=== PATIENT | male | born 1995 | race Asian ===

== ENCOUNTER 2021-09-22 04:30 | Emergency (ER) | payer OTHER ==
[~2021-09-22] VITALS: Ht 172.7 cm; Wt 86.2 kg
--- NOTE | 2021-09-22 04:33 | NUR ---
PT BIBA BLS TO BED 12.
[2021-09-22] MEDS ORDERED: ONDANSETRON 4 MG ODT PO ONE (04:45)
[2021-09-22] MEDS ORDERED: MECLIZINE 25 MG TAB PO ONE (04:45)
[2021-09-22 04:46] VITALS: BP 143/103
[2021-09-22] MEDS ORDERED: NACL 0.9% 1,000 ML IV ONE (06:30)
[2021-09-22 07:33] LABS: BASOPHILS # (AUTO) 0.1 K/uL (0.00-0.22); BASOPHILS % (AUTO) 0.5 % (0.0-2.0); EOSINOPHILS # (AUTO) 0.2 K/uL (0-0.4); EOSINOPHILS % (AUTO) 2.1 % (0.0-4.0); HEMATOCRIT 46.3 % (36-52); HEMOGLOBIN 15.4 g/dL (12.0-18.0); LYMPHOCYTES # (AUTO) 3.7 K/uL (2.0-11.5); LYMPHOCYTES % (AUTO) 36.7 % (20.5-51.1); MEAN CORPUSCULAR HEMOGLOBIN 29 pg (27-31); MEAN CORPUSCULAR HGB CONC 33 g/dL (33-37); MEAN CORPUSCULAR VOLUME 86.8 fL (80-94); MONOCYTES # (AUTO) 0.6 K/uL (0.8-1.0); MONOCYTES % (AUTO) 5.9 % (1.7-9.3); NEUTROPHILS # (AUTO) 5.6 K/uL (1.8-7.7); NEUTROPHILS % (AUTO) 54.8 % (42.2-75.2); PLATELET COUNT (AUTO) 274 K/uL (140-450); RED BLOOD CELL COUNT(AUTO) 5.33 MIL/uL (4.20-6.10); RED CELL DISTRIBUTION WIDTH 13.9 % (11.6-13.7); WHITE BLOOD COUNT (AUTO) 10.2 K/uL (4.8-10.8)
[2021-09-22 07:47] LABS: APPEARANCE,URINE CLEAR (CLEAR); BILIRUBIN,URINE NEGATIVE (NEGATIVE); BLOOD, URINE 1+ (NEGATIVE); COLOR,URINE YELLOW (YELLOW); LEUKOCYTE ESTERASE ,URINE NEGATIVE (NEGATIVE); NITRITE, URINE NEGATIVE (NEGATIVE); UGLUCOSE NEGATIVE (NEGATIVE)
[2021-09-22 07:51] LABS: ALBUMIN 3.9 g/dL (3.4-5.0); ANION GAP 12.2 (8-16); CARBON DIOXIDE 25.6 mmol/L (21-32); CREATININE 0.8 mg/dL (0.6-1.3); MAGNESIUM 2.1 mg/dL (1.8-2.4); PHOSPHORUS 3.6 mg/dL (2.5-4.9); POTASSIUM 3.8 mmol/L (3.5-5.1); TOTAL BILIRUBIN 0.2 mg/dL (0.0-1.0)
[2021-09-22 08:13] LABS: BARBITURATE, URINE NEGATIVE ng/ml (NEG <=200); BENZODIAZEPINE, URINE NEGATIVE ng/mL (NEG <=200); CANNABINOID, URINE NEGATIVE ng/mL (NEG <=50); COCAINE, URINE NEGATIVE ng/mL (NEG <=300); OPIATE, URINE NEGATIVE ng/mL (NEG <=2000); PHENCYCLIDINE SCREEN,URINE NEGATIVE ng/mL (NEG <=25)
[2021-09-22 08:24] LABS: WBC,URINE 0-5 /HPF (0-5)
[2021-09-22] MEDS ORDERED: MECL-303 PO (08:39)
[2021-09-22 08:47] VITALS: BP 143/103
--- NOTE | 2021-09-22 08:48 | NUR ---
Patient discharged with v/s stable. Written and verbal after care instructions ABOUT VERTIGO given and explained. Patient alert, oriented and verbalized understanding of instructions. Ambulatory with steady gait. All questions addressed prior to discharge. ID band removed. Patient advised to follow up with PMD. Rx of MECLIZINE given. Patient educated on indication of medication including possible reaction and side effects. Opportunity to ask questions provided and answered.
== END 2021-09-22 08:48 | disposition home or self-care (01) ==
LOC: MED 04:30
DX: H81.399 Other peripheral vertigo, unspecified ear (principal); F17.210 Nicotine dependence, cigarettes, uncomplicated
CPT/HCPCS: 36415; 80053; 80305; 81001; 83735; 84100; 85025; 93005; 96360; 96361; 99284; J8597; Q0162; J7030

== ENCOUNTER 2022-05-17 22:02 | Emergency (ER) | payer OTHER ==
[~2022-05-17] VITALS: Ht 172.7 cm; Wt 90.7 kg
[~2022-05-17 22:02] MED LIST: MECL-303 PO
[2022-05-17 22:42] VITALS: BP 119/75
--- NOTE | 2022-05-17 22:48 | NUR ---
TO LOBBY FOLLOWING TRIAGE
[2022-05-18 00:40] VITALS: BP 119/75
--- NOTE | 2022-05-18 00:40 | NUR ---
CALLED PT TO DISCHARGE, NO ANSWER. PT LEFT WITHOUT ACI
== END 2022-05-18 00:40 | disposition home or self-care (01) ==
LOC: MED 22:02
DX: Z22.7 Latent tuberculosis (principal)
CPT/HCPCS: 71045; 99283